=== PATIENT | male | born 1980 | race Asian ===

== ENCOUNTER 2025-01-10 02:30 | Observation (INO) | payer OTHER ==
[~2025-01-10] VITALS: Ht 180.3 cm; Wt 108.0 kg
[2025-01-10] VITALS (11 sets, daily range): BP systolic 94–128; BP diastolic 53–81; TEMP 97–97.6; O2SAT 91–100
[2025-01-10 03:32] LABS: BASO # 0.1 10^3/uL (0.0-0.2); BASO % 0.7 % (0.0-1.0); EOS # 0.1 10^3/uL (0.0-0.5); EOS % 1.4 % (0.0-3.0); LYMPH # 1.2 10^3/uL (1.5-5.0); LYMPH % 17.1 % (24.0-44.0); MONO # 0.7 10^3/uL (0.0-0.8); MONO % 9.9 % (2.0-8.0); NEUTROPHILS # 5.0 10^3/uL (1.5-8.5); NEUTROPHILS % 70.2 % (36.0-66.0); PLATELET COUNT, AUTOMATED 233 10^3/uL (150-450)
[2025-01-10 03:56] LABS: ALT/SGPT 66.0 U/L (7.0-40); AST/SGOT 48.0 U/L (<34); CALCIUM LEVEL 9.2 MG/DL (8.5-10.1); CARBON DIOXIDE LEVEL 24.0 MMOL/L (20-31); CHLORIDE LEVEL 105.0 MMOL/L (98-107); CREATININE FOR GFR 1.07 MG/DL (0.70-1.30); GLOMERULAR FILTRATION RATE 87.8 (>60); POTASSIUM SERUM 3.8 MMOL/L (3.5-5.1); SODIUM LEVEL 141.0 MMOL/L (136-145)
[2025-01-10 04:39] LABS: KETONE, URINE AUTO RFX NEGATIVE (NEGATIVE); LEUKOCYTE ESTERASE UR AUTO RFX NEGATIVE (NEGATIVE); MUCUS, URINE RFX SMALL (NEGATIVE); NITRITE, URINE AUTO RFX NEGATIVE (NEGATIVE); RBC, URINE AUTO RFX 180 /HPF (0-3); SQUAM EPITHELIAL CELL UR AURFX 0 /HPF (0-6); WBC, URINE AUTO RFX 3 /HPF (0-3)
[2025-01-10] MEDS ORDERED: KETOROLAC 30 MG/ML 1 ML VIAL As Ordered ONE (04:47)
[2025-01-10] MEDS ORDERED: ONDANSETRON 4MG 2ML VIAL As Ordered ONE (04:47)
[2025-01-10] MEDS: KETOROLAC 30 MG/ML 1 ML VIAL IV ONE ×2 (04:54→11:07)
[2025-01-10] MEDS: ONDANSETRON 4MG 2ML VIAL IV ONE (04:54)
[2025-01-10] MEDS: NS (Normal Saline) 0.9% 1,000 ML IV ONE (06:38)
[2025-01-10] MEDS: MORPHINE 4 MG/ML 1 ML VIAL IV PRN (06:38)
[2025-01-10] MEDS: HYDROMORPHONE HCL 0.5 MG/0.5 ML SYRINGE IV ONE (08:34)
[2025-01-10] MEDS: PANTOPRAZOLE 40MG TAB PO SCH (09:00)
[2025-01-10] MEDS ORDERED: DULO1CAP6 PO (10:00)
[2025-01-10] MEDS ORDERED: PANT40TA29 PO (10:00)
[2025-01-10] MEDS ORDERED: HOME MED LIST COMPLETE! XX SCH (10:00)
[2025-01-10] MEDS ORDERED: SUCR1TA PO (10:00)
[2025-01-10] MEDS: HYDROMORPHONE HCL 0.5 MG/0.5 ML SYRINGE IV PRN ×2 (10:42→16:56)
[2025-01-10] MEDS: NS (Normal Saline) 0.9% 1,000 ML IV SCH (11:12)
[2025-01-10] MEDS: SUCRALFATE 1 GM TAB PO SCH (11:16)
[2025-01-10] MEDS ORDERED: ONDANSETRON 4MG 2ML VIAL IV PRN (12:20)
[2025-01-10] MEDS: ACETAMINOPHEN *IV* 1,000 MG in IV 1 EA IV ONE (12:59)
[2025-01-10] MEDS ORDERED: MIDAZOLAM INJ 2 MG/2 ML VIAL As Ordered ONE (15:02)
[2025-01-10] MEDS: ISOVUE-300 61% 100 ML VIAL As Ordered ONE (15:20)
[2025-01-10] MEDS ORDERED: LIDOCAINE 2% 100 MG/5 ML SDV (FOR ANES.) As Ordered ONE (15:35)
[2025-01-10] MEDS ORDERED: dexAMETHasone 4 MG/ML 1 ML VIAL As Ordered ONE (15:35)
[2025-01-10] MEDS: BACTRIM 160MG/800MG DS TAB PO SCH (20:30)
[2025-01-10] MEDS: PERCOCET 5MG/325MG TAB PO PRN (20:31)
[2025-01-11 04:06] VITALS: BP 109/59; TEMP 97; O2SAT 95
[2025-01-11 05:46] LABS: PLATELET COUNT, AUTOMATED 208 10^3/uL (150-450)
[2025-01-11 06:21] LABS: ALT/SGPT 46 U/L (7.0-40); AST/SGOT 33 U/L (<34); CALCIUM LEVEL 8.1 MG/DL (8.5-10.1); CARBON DIOXIDE LEVEL 27 MMOL/L (20-31); CHLORIDE LEVEL 105 MMOL/L (98-107); CREATININE FOR GFR 0.93 MG/DL (0.70-1.30); GLOMERULAR FILTRATION RATE > 90.0 (>60); POTASSIUM SERUM 4.0 MMOL/L (3.5-5.1); SODIUM LEVEL 140 MMOL/L (136-145)
[2025-01-11 08:00] VITALS: BP 104/55; TEMP 97; O2SAT 97
[2025-01-11] MEDS ORDERED: BACTDSTA PO (11:23)
[2025-01-11] MEDS ORDERED: OXYC1TAB23 PO (11:29)
[2025-01-11] MEDS ORDERED: OXYB5TAB14 PO (11:29)
== END 2025-01-11 11:40 | disposition home or self-care (01) ==
LOC: M ED 02:30 → M ED INP 02:31 → M MS4PR 10:57
PROVIDERS: ADMIT Internal Medicine; ATTEND Internal Medicine
DX: N20.1 Calculus of ureter (principal); R10.31 Right lower quadrant pain; R10.A1 Flank pain, right side; Z87.442 Personal history of urinary calculi; K21.9 Gastro-esophageal reflux disease without esophagitis; F41.9 Anxiety disorder, unspecified; F32.A Depression, unspecified; R74.01 Elevation of levels of liver transaminase levels; Z90.49 Acquired absence of other specified parts of digestive tract; Z96.0 Presence of urogenital implants; Z90.89 Acquired absence of other organs; Z98.890 Other specified postprocedural states; K76.0 Fatty (change of) liver, not elsewhere classified; R16.1 Splenomegaly, not elsewhere classified; R31.21 Asymptomatic microscopic hematuria; R80.8 Other proteinuria; Z79.899 Other long term (current) drug therapy
CPT/HCPCS: 36415; 52332; 52351; 74176; 74420; 80048; 80053; 80076; 81001; 83605; 83690; 85025; 85027; 93005; 93041; 96374; 96375; 96376; 99285; C1769; C2617; J0131; J0688; J1100; J1171; J1885; J2250; J2405; J3010; Q9967